=== PATIENT | female | born 1965 | race Caucasian/White ===

== ENCOUNTER 2018-04-24 02:41 | Inpatient (IN) | payer OTHER ==
[~2018-04-24] VITALS: Ht 154.9 cm; Wt 67.3 kg
[2018-04-24] MEDS ORDERED: ONDANSETRON ODT 4 MG ONE (03:12)
[2018-04-24] MEDS ORDERED: MORPHINE SULFATE 4 MG/ML, 1ML ONE ×4 (03:12→05:32)
[2018-04-24] MEDS ORDERED: KETOROLAC 30 MG/1 ML ONE (03:12)
[2018-04-24 03:16] LABS: BASOPHILS # (AUTO) 0.01 x10^3/uL (0-0.1); BASOPHILS % (AUTO) 0 % (0-1); EOSINOPHILS # (AUTO) 0.07 x10^3/uL (0-0.4); EOSINOPHILS % (AUTO) 1 % (1-7); LYMPHOCYTES # (AUTO) 1.66 x10^3/uL (1-3.4); LYMPHOCYTES % (AUTO) 15 % (22-44); MD NO; MEAN CORPUSCULAR HEMOGLOBIN 31.9 pg (27.0-34.8); MEAN CORPUSCULAR HGB CONC 33.8 g/dL (32.4-35.8); MEAN CORPUSCULAR VOLUME 94.2 fL (80-100); MEAN PLATELET VOLUME 8.3 fL (7.4-10.4); MONOCYTES # (AUTO) 0.03 x10^3/uL (0.2-0.8); MONOCYTES % (AUTO) 0 % (2-9); NEUTROPHILS # (AUTO) 9.42 x10^3/uL (1.8-6.8); NEUTROPHILS % (AUTO) 84 % (42-75); PLATELET COUNT 250 x10^3/uL (130-400); RED CELL DISTRIBUTION WIDTH 13.1 % (9.6-15.2)
[2018-04-24 03:16] LABS: MICROSCOPIC AUTO
[2018-04-24] MEDS: MORPHINE SULFATE 4 MG/ML, 1ML IVPush PRN ×4 (03:18→05:36)
[2018-04-24 03:21] LABS: CULTURE INDICATED? YES
[2018-04-24 03:27] LABS: ALANINE AMINOTRANSFERASE 44 U/L (12-78); ALBUMIN 4.3 g/dL (3.4-5.0); ANION GAP 12 mmol/L (5-15); CALCIUM 8.9 mg/dL (8.5-10.1); CHLORIDE 108 mmol/L (98-107); CREATININE 0.93 mg/dL (0.55-1.02)
[2018-04-24 03:30] LABS: ALKALINE PHOSPHATASE 109 U/L (45-117); BILIRUBIN,TOTAL 0.4 mg/dL (0.2-1.0); TOTAL PROTEIN 7.9 g/dL (6.4-8.2)
[2018-04-24] MEDS ORDERED: ONDANSETRON ODT 4 MG PO ONE (03:30)
[2018-04-24] MEDS ORDERED: SODIUM CHLORIDE FLUSH 10ML SYR IVF ONE (03:30)
[2018-04-24] MEDS ORDERED: KETOROLAC 30 MG/1 ML IVPush ONE (03:30)
[2018-04-24] MEDS ORDERED: PROCHLORPERAZINE 5 MG/ML, 2ML ONE (04:16)
[2018-04-24] MEDS ORDERED: PROCHLORPERAZINE 5 MG/ML, 2ML IVPush ONE (04:30)
[2018-04-24] MEDS ORDERED: CEFTRIAXONE PMX 1GM/50ML 50 ML IV ONE (05:00)
[2018-04-24 05:09] LABS: MICROSCOPIC AUTO
[2018-04-24 05:12] LABS: CULTURE INDICATED? YES
[2018-04-24] MEDS ORDERED: CEFTRIAXONE PMX 1GM/50ML 50 ML ONE (05:15)
[2018-04-24 06:15] VITALS: BP 119/77
[2018-04-24] MEDS ORDERED: CEFTRIAXONE PMX 1GM/50ML 50 ML IV SCH (08:00)
[2018-04-24] MEDS ORDERED: BISACODYL 10 MG SUPP PR PRN (08:00)
[2018-04-24] MEDS ORDERED: ACETAMINOPHEN 325 MG TABLET PO PRN (08:00)
[2018-04-24] MEDS: ONDANSETRON 2MG/ML, 2ML IVPush PRN ×2 (10:23→21:56)
[2018-04-24] MEDS: SENNA/DOCUSATE TABLET PO SCH (10:24)
[2018-04-24] MEDS: SODIUM CHLORIDE 0.9% 1,000 ML IV SCH ×2 (10:24→17:47)
[2018-04-24] MEDS: morphine SULFATE 10 MG/ML, 1ML IVPush PRN ×3 (11:25→23:16)
[2018-04-24 13:20] VITALS: BP 102/68
[2018-04-24] MEDS: PROCHLORPERAZINE 5 MG/ML, 2ML IM PRN (16:35)
[2018-04-24 19:28] VITALS: BP 99/65
[2018-04-24] MEDS ORDERED: PROPOFOL 10 MG/ML, 20ML ONE (19:51)
[2018-04-24] MEDS ORDERED: CEFAZOLIN 1,000 MG ONE (19:51)
[2018-04-24] MEDS ORDERED: SUCCINYLCHOLINE 20 MG/ML, 10ML ONE (19:51)
[2018-04-24] MEDS ORDERED: LIDOCAINE 2% 100MG/5ML SYRINGE ONE (19:51)
[2018-04-24] MEDS ORDERED: LACTATED RINGERS 1,000 ML ONE (19:51)
[2018-04-24] MEDS ORDERED: DEXAMETHASONE 4 MG/ML, 1ML ONE (19:51)
[2018-04-24] MEDS ORDERED: FENTANYL PF 100 MCG/2ML ONE (19:55)
[2018-04-24] MEDS ORDERED: OXYcodone 5 MG/5 ML ORAL.SOL UDC PO PRN (20:30)
[2018-04-24] MEDS ORDERED: FENTANYL PF 100 MCG/2ML IV PRN (20:30)
[2018-04-24] MEDS ORDERED: HALOPERIDOL 5 MG/ML IV PRN (20:30)
[2018-04-24] MEDS ORDERED: HYDROmorphone 1 MG/ML, 1ML IV PRN (20:30)
[2018-04-24] MEDS ORDERED: OMNIPAQUE 350 MG/ML, 50 ML BOTTLE ONE (21:50)
[2018-04-25 01:04] VITALS: BP 113/72
[2018-04-25] MEDS: SODIUM CHLORIDE 0.9% 1,000 ML IV SCH ×4 (03:25→23:00)
[2018-04-25 04:43] LABS: ALANINE AMINOTRANSFERASE 507 U/L (12-78); ANION GAP 8 mmol/L (5-15); CALCIUM 7.8 mg/dL (8.5-10.1); CHLORIDE 111 mmol/L (98-107)
[2018-04-25 04:45] LABS: ALKALINE PHOSPHATASE 122 U/L (45-117); BILIRUBIN,TOTAL 0.6 mg/dL (0.2-1.0); CREATININE 0.66 mg/dL (0.55-1.02); TOTAL PROTEIN 6.3 g/dL (6.4-8.2)
[2018-04-25 04:47] LABS: MEAN CORPUSCULAR HEMOGLOBIN 31.3 pg (27.0-34.8); MEAN CORPUSCULAR HGB CONC 33.2 g/dL (32.4-35.8); MEAN CORPUSCULAR VOLUME 94.2 fL (80-100); MEAN PLATELET VOLUME 8.4 fL (7.4-10.4); PLATELET COUNT 192 x10^3/uL (130-400); RED CELL DISTRIBUTION WIDTH 13.9 % (9.6-15.2)
[2018-04-25 05:46] LABS: MD YES
[2018-04-25 05:47] LABS: BAND#(MANUAL) 3.93 x10^3/uL; BANDS%(MANUAL) 13 % (0-7); LYMPH#(MANUAL) 1.81 x10^3/uL (1-3.4); LYMPHS% (MANUAL) 6 % (22-44); MONOS#(MANUAL) 0.91 x10^3/uL (0.3-2.7); MONOS% (MANUAL) 3 % (2-9); SEG#(MANUAL) 23.56 x10^3/uL (1.8-6.8); SEGS% (MANUAL) 78 % (42-75)
[2018-04-25 05:48] LABS: <PLATELET ESTIMATE> ADEQUATE; <PLT MORPHOLOGY> NORMAL PLT MORPH; <RBC MORPHOLOGY> NORMAL
[2018-04-25] MEDS: morphine SULFATE 10 MG/ML, 1ML IVPush PRN ×2 (07:33→20:12)
[2018-04-25] MEDS: SENNA/DOCUSATE TABLET PO SCH (07:34)
[2018-04-25] MEDS: ONDANSETRON 2MG/ML, 2ML IVPush PRN ×3 (07:34→23:10)
[2018-04-25 08:09] VITALS: BP 108/66
[2018-04-25] MEDS: CEFTRIAXONE 1,000 MG in SODIUM CHLORIDE 0.9% 50 ML IV SCH (09:51)
[2018-04-25] MEDS: PROCHLORPERAZINE 5 MG/ML, 2ML IM PRN ×2 (10:57→20:12)
[2018-04-25 11:10] LABS: INTERNATIONAL NORMALIZED RATIO 1.47 (0.93-1.1); PROTHROMBIN TIME 15.2 Seconds (9.6-11.5)
[2018-04-25 13:56] VITALS: BP 102/64
[2018-04-25 14:35] LABS: ALANINE AMINOTRANSFERASE 395 U/L (12-78); ALBUMIN 2.9 g/dL (3.4-5.0); ANION GAP 6 mmol/L (5-15); CALCIUM 7.8 mg/dL (8.5-10.1); CHLORIDE 112 mmol/L (98-107); CREATININE 0.62 mg/dL (0.55-1.02)
[2018-04-25 14:37] LABS: ALKALINE PHOSPHATASE 114 U/L (45-117); BILIRUBIN,TOTAL 0.4 mg/dL (0.2-1.0); TOTAL PROTEIN 6.1 g/dL (6.4-8.2)
[2018-04-25 19:24] LABS: MEAN CORPUSCULAR HEMOGLOBIN 31.9 pg (27.0-34.8); MEAN CORPUSCULAR HGB CONC 33.6 g/dL (32.4-35.8); MEAN CORPUSCULAR VOLUME 94.8 fL (80-100); MEAN PLATELET VOLUME 8.6 fL (7.4-10.4); PLATELET COUNT 184 x10^3/uL (130-400); RED BLOOD COUNT 3.43 x10^6/uL (3.82-5.3); RED CELL DISTRIBUTION WIDTH 13.9 % (9.6-15.2)
[2018-04-25 19:44] LABS: MD YES
[2018-04-25 19:46] LABS: BAND#(MANUAL) 2.68 x10^3/uL; BANDS%(MANUAL) 11 % (0-7); LYMPH#(MANUAL) 0.98 x10^3/uL (1-3.4); LYMPHS% (MANUAL) 4 % (22-44); MONOS#(MANUAL) 0.24 x10^3/uL (0.3-2.7); MONOS% (MANUAL) 1 % (2-9); SEGS% (MANUAL) 84 % (42-75)
[2018-04-25 19:47] LABS: <PLATELET ESTIMATE> ADEQUATE; <PLT MORPHOLOGY> NORMAL PLT MORPH; <RBC MORPHOLOGY> NORMAL
[2018-04-25 19:49] VITALS: BP 121/73
[2018-04-26 00:37] VITALS: BP 130/80
[2018-04-26 04:30] LABS: MEAN CORPUSCULAR HEMOGLOBIN 31.1 pg (27.0-34.8); MEAN CORPUSCULAR HGB CONC 33.2 g/dL (32.4-35.8); MEAN CORPUSCULAR VOLUME 93.8 fL (80-100); MEAN PLATELET VOLUME 8.7 fL (7.4-10.4); PLATELET COUNT 187 x10^3/uL (130-400); RED BLOOD COUNT 3.52 x10^6/uL (3.82-5.3); RED CELL DISTRIBUTION WIDTH 13.6 % (9.6-15.2)
[2018-04-26 04:39] LABS: ALBUMIN 2.7 g/dL (3.4-5.0); ANION GAP 7 mmol/L (5-15); CALCIUM 7.6 mg/dL (8.5-10.1); CHLORIDE 112 mmol/L (98-107)
[2018-04-26 04:43] LABS: ALANINE AMINOTRANSFERASE 331 U/L (12-78); ALKALINE PHOSPHATASE 113 U/L (45-117); BILIRUBIN,TOTAL 0.6 mg/dL (0.2-1.0); CREATININE 0.67 mg/dL (0.55-1.02); TOTAL PROTEIN 5.9 g/dL (6.4-8.2)
[2018-04-26 05:14] LABS: MD YES
[2018-04-26 05:18] LABS: <RBC MORPHOLOGY> NORMAL; BAND#(MANUAL) 1.56 x10^3/uL; BANDS%(MANUAL) 8 % (0-7); LYMPH#(MANUAL) 4.68 x10^3/uL (1-3.4); LYMPHS% (MANUAL) 24 % (22-44); METAMYELOCYTES% (MANUAL) 1 % (0-1); MONOS#(MANUAL) 0.39 x10^3/uL (0.3-2.7); MONOS% (MANUAL) 2 % (2-9); SEG#(MANUAL) 12.68 x10^3/uL (1.8-6.8); SEGS% (MANUAL) 65 % (42-75)
[2018-04-26 05:19] LABS: <PLATELET ESTIMATE> ADEQUATE; <PLT MORPHOLOGY> NORMAL PLT MORPH
[2018-04-26] MEDS: morphine SULFATE 10 MG/ML, 1ML IVPush PRN ×6 (05:32→23:45)
[2018-04-26] MEDS: SODIUM CHLORIDE 0.9% 1,000 ML IV SCH ×3 (05:35→19:59)
[2018-04-26 07:05] VITALS: BP 136/82
[2018-04-26] MEDS: SENNA/DOCUSATE TABLET PO SCH (08:50)
[2018-04-26] MEDS: CEFTRIAXONE 1,000 MG in SODIUM CHLORIDE 0.9% 50 ML IV SCH (09:34)
[2018-04-26] MEDS: ONDANSETRON 2MG/ML, 2ML IVPush PRN ×3 (09:34→23:45)
[2018-04-26] MEDS: PROCHLORPERAZINE 5 MG/ML, 2ML IM PRN ×2 (12:11→19:52)
[2018-04-26 14:48] VITALS: BP 122/68
[2018-04-26 19:21] VITALS: BP 154/82
[2018-04-27 01:24] VITALS: BP 143/78
[2018-04-27] MEDS: SODIUM CHLORIDE 0.9% 1,000 ML IV SCH ×4 (02:21→22:31)
[2018-04-27 04:22] LABS: MEAN CORPUSCULAR HEMOGLOBIN 31.8 pg (27.0-34.8); MEAN CORPUSCULAR HGB CONC 33.8 g/dL (32.4-35.8); MEAN CORPUSCULAR VOLUME 93.9 fL (80-100); MEAN PLATELET VOLUME 8.3 fL (7.4-10.4); PLATELET COUNT 198 x10^3/uL (130-400); RED BLOOD COUNT 3.55 x10^6/uL (3.82-5.3); RED CELL DISTRIBUTION WIDTH 13.4 % (9.6-15.2)
[2018-04-27 04:34] LABS: ALBUMIN 2.8 g/dL (3.4-5.0); ANION GAP 7 mmol/L (5-15); CALCIUM 7.6 mg/dL (8.5-10.1); CHLORIDE 108 mmol/L (98-107)
[2018-04-27 04:38] LABS: ALANINE AMINOTRANSFERASE 392 U/L (12-78); ALKALINE PHOSPHATASE 170 U/L (45-117); CREATININE 0.51 mg/dL (0.55-1.02); TOTAL PROTEIN 6.1 g/dL (6.4-8.2)
[2018-04-27] MEDS: morphine SULFATE 10 MG/ML, 1ML IVPush PRN ×4 (04:42→21:54)
[2018-04-27 04:45] LABS: MD YES
[2018-04-27 04:47] LABS: <PLATELET ESTIMATE> ADEQUATE; <PLT MORPHOLOGY> NORMAL PLT MORPH; <RBC MORPHOLOGY> NORMAL; BAND#(MANUAL) 0.35 x10^3/uL; BANDS%(MANUAL) 3 % (0-7); LYMPH#(MANUAL) 2.57 x10^3/uL (1-3.4); LYMPHS% (MANUAL) 22 % (22-44); MONOS#(MANUAL) 0.23 x10^3/uL (0.3-2.7); MONOS% (MANUAL) 2 % (2-9); SEG#(MANUAL) 8.54 x10^3/uL (1.8-6.8); SEGS% (MANUAL) 73 % (42-75)
[2018-04-27] MEDS: PROCHLORPERAZINE 5 MG/ML, 2ML IM PRN ×3 (04:53→18:31)
[2018-04-27 06:40] VITALS: BP 131/78
[2018-04-27] MEDS: CEFTRIAXONE 1,000 MG in SODIUM CHLORIDE 0.9% 50 ML IV SCH (08:45)
[2018-04-27] MEDS: ONDANSETRON 2MG/ML, 2ML IVPush PRN ×3 (08:46→21:54)
[2018-04-27] MEDS: SENNA/DOCUSATE TABLET PO SCH (08:46)
[2018-04-27 12:35] VITALS: BP 138/83
[2018-04-27 19:12] VITALS: BP 151/88
[2018-04-28 01:26] VITALS: BP 144/82
[2018-04-28] MEDS: PROCHLORPERAZINE 5 MG/ML, 2ML IM PRN (01:49)
[2018-04-28] MEDS ORDERED: MORPHINE SULFATE 4 MG/ML, 1ML ONE (04:13)
[2018-04-28] MEDS: morphine SULFATE 10 MG/ML, 1ML IVPush PRN ×2 (04:16→10:01)
[2018-04-28 04:50] LABS: ALANINE AMINOTRANSFERASE 396 U/L (12-78); ALBUMIN 2.9 g/dL (3.4-5.0); ANION GAP 10 mmol/L (5-15); CALCIUM 7.9 mg/dL (8.5-10.1); CHLORIDE 103 mmol/L (98-107); CREATININE 0.44 mg/dL (0.55-1.02)
[2018-04-28] MEDS: SODIUM CHLORIDE 0.9% 1,000 ML IV SCH (04:51)
[2018-04-28 04:52] LABS: ALKALINE PHOSPHATASE 220 U/L (45-117); BILIRUBIN,TOTAL 0.9 mg/dL (0.2-1.0); TOTAL PROTEIN 6.5 g/dL (6.4-8.2)
[2018-04-28 07:23] VITALS: BP 153/80
[2018-04-28] MEDS ORDERED: MAGNESIUM SULFATE PMX 2GM/50ML 50 ML IV ONE (07:30)
[2018-04-28] MEDS ORDERED: POTASSIUM CHLORIDE 20 MEQ PACKET PO SCH (08:00)
[2018-04-28] MEDS: SENNA/DOCUSATE TABLET PO SCH (09:00)
[2018-04-28 09:41] LABS: MEAN CORPUSCULAR HEMOGLOBIN 30.8 pg (27.0-34.8); MEAN CORPUSCULAR HGB CONC 33.3 g/dL (32.4-35.8); MEAN CORPUSCULAR VOLUME 92.5 fL (80-100); MEAN PLATELET VOLUME 8.5 fL (7.4-10.4); PLATELET COUNT 248 x10^3/uL (130-400); RED BLOOD COUNT 3.83 x10^6/uL (3.82-5.3); RED CELL DISTRIBUTION WIDTH 13.1 % (9.6-15.2)
[2018-04-28 09:54] LABS: MD YES
[2018-04-28 09:57] LABS: BANDS%(MANUAL) 1 % (0-7); EOS% (MANUAL) 2 % (1-7); LYMPH#(MANUAL) 2.48 x10^3/uL (1-3.4); LYMPHS% (MANUAL) 25 % (22-44); METAMYELOCYTES% (MANUAL) 2 % (0-1); MONOS#(MANUAL) 0.89 x10^3/uL (0.3-2.7); MONOS% (MANUAL) 9 % (2-9); NRBC % (MANUAL) 1 % (0-1); SEG#(MANUAL) 6.04 x10^3/uL (1.8-6.8); SEGS% (MANUAL) 61 % (42-75)
[2018-04-28 09:58] LABS: <PLATELET ESTIMATE> ADEQUATE; <PLT MORPHOLOGY> NORMAL PLT MORPH; <RBC MORPHOLOGY> NORMAL
[2018-04-28] MEDS: CEFTRIAXONE 1,000 MG in SODIUM CHLORIDE 0.9% 50 ML IV SCH (10:01)
[2018-04-28] MEDS: ONDANSETRON 2MG/ML, 2ML IVPush PRN ×2 (10:01→17:01)
[2018-04-28] MEDS: NS + 40MEQ KCL 1,000 ML IV SCH ×2 (10:02→22:14)
[2018-04-28 12:39] VITALS: BP 150/83
[2018-04-28 18:33] VITALS: BP 148/86
[2018-04-28] MEDS ORDERED: TEMAZEPAM 15 MG CAPSULE PO PRN (22:00)
[2018-04-29 01:43] VITALS: BP 145/84
[2018-04-29 04:37] LABS: BASOPHILS # (AUTO) 0.03 x10^3/uL (0-0.1); BASOPHILS % (AUTO) 0 % (0-1); EOSINOPHILS # (AUTO) 0.26 x10^3/uL (0-0.4); EOSINOPHILS % (AUTO) 2 % (1-7); LYMPHOCYTES # (AUTO) 2.69 x10^3/uL (1-3.4); LYMPHOCYTES % (AUTO) 24 % (22-44); MD NO; MEAN CORPUSCULAR HEMOGLOBIN 31.2 pg (27.0-34.8); MEAN CORPUSCULAR HGB CONC 33.6 g/dL (32.4-35.8); MEAN PLATELET VOLUME 8.1 fL (7.4-10.4); MONOCYTES # (AUTO) 1.07 x10^3/uL (0.2-0.8); MONOCYTES % (AUTO) 10 % (2-9); NEUTROPHILS # (AUTO) 7.02 x10^3/uL (1.8-6.8); NEUTROPHILS % (AUTO) 63 % (42-75); PLATELET COUNT 282 x10^3/uL (130-400); RED BLOOD COUNT 4.21 x10^6/uL (3.82-5.3); RED CELL DISTRIBUTION WIDTH 13.3 % (9.6-15.2)
[2018-04-29 04:44] LABS: ANION GAP 7 mmol/L (5-15); CALCIUM 8.5 mg/dL (8.5-10.1); CHLORIDE 104 mmol/L (98-107)
[2018-04-29 06:58] VITALS: BP 143/87
[2018-04-29] MEDS: SENNA/DOCUSATE TABLET PO SCH (09:00)
[2018-04-29] MEDS: NS + 40MEQ KCL 1,000 ML IV SCH (09:38)
[2018-04-29] MEDS: CEFTRIAXONE 1,000 MG in SODIUM CHLORIDE 0.9% 50 ML IV SCH (09:38)
[2018-04-29] MEDS ORDERED: ONDA4TAB10 PO (09:48)
[2018-04-29] MEDS ORDERED: CIPR500T87 PO (09:48)
== END 2018-04-29 11:05 | disposition home or self-care (01) | DRG 689 ==
LOC: ED 04:19 → EDBD 05:42 → EDIP 05:42 → 3NW 06:06
PROVIDERS: ADMIT Internal Medicine; ATTEND Internal Medicine
PROC: BT1F1ZZ Fluoroscopy of Left Kidney, Ureter and Bladder using Low Osmolar Contrast (ICD-10-PCS; 2018-04-24)
PROC: 0T9B70Z Drainage of Bladder with Drainage Device, Via Natural or Artificial Opening (ICD-10-PCS; 2018-04-24)
PROC: 0T778DZ Dilation of Left Ureter with Intraluminal Device, Via Natural or Artificial Opening Endoscopic (ICD-10-PCS; principal; 2018-04-24 20:00)
DX: N13.6 Pyonephrosis (principal); J96.91 Respiratory failure, unspecified with hypoxia; E83.42 Hypomagnesemia; E87.6 Hypokalemia; I88.0 Nonspecific mesenteric lymphadenitis; Z66 Do not resuscitate; Z80.8 Family history of malignant neoplasm of other organs or systems; Z90.710 Acquired absence of both cervix and uterus
CPT/HCPCS: 36415; 71045; 74176; 74420; 76700; 80048; 80053; 80074; 80307; 81001; 83735; 84100; 84443; 85025; 85610; 87040; 87077; 87086; 87186; 96365; 96372; 96375; 99285; J0690; J0696; J1100; J1885; J2405; J2704; J3010; Q0162; Q9967; C1758; C1769; C2617; J0330; J0780; J2270; J3475; J3480; J7030; J7120

== ENCOUNTER 2018-04-30 21:06 | Emergency (ER) | payer OTHER ==
[~2018-04-30] VITALS: Ht 154.9 cm; Wt 63.1 kg
[~2018-04-30 21:06] MED LIST: CIPR500T87 PO; ONDA4TAB10 PO
[2018-04-30 21:51] LABS: CULTURE INDICATED? YES; MICROSCOPIC AUTO
[2018-04-30] MEDS ORDERED: KETOROLAC 30 MG/1 ML ONE (22:16)
[2018-04-30] MEDS ORDERED: MORPHINE SULFATE 4 MG/ML, 1ML ONE (22:16)
[2018-04-30] MEDS ORDERED: SODIUM CHLORIDE FLUSH 10ML SYR IVF ONE (22:30)
[2018-04-30] MEDS ORDERED: KETOROLAC 30 MG/1 ML IVPush ONE (22:30)
[2018-04-30] MEDS ORDERED: MORPHINE SULFATE 4 MG/ML, 1ML IVPush PRN (22:30)
[2018-04-30 22:42] LABS: BASOPHILS # (AUTO) 0.16 x10^3/uL (0-0.1); BASOPHILS % (AUTO) 2 % (0-1); EOSINOPHILS # (AUTO) 0.19 x10^3/uL (0-0.4); EOSINOPHILS % (AUTO) 2 % (1-7); LYMPHOCYTES # (AUTO) 4.04 x10^3/uL (1-3.4); LYMPHOCYTES % (AUTO) 37 % (22-44); MD NO; MEAN CORPUSCULAR HEMOGLOBIN 31.4 pg (27.0-34.8); MEAN CORPUSCULAR HGB CONC 33.3 g/dL (32.4-35.8); MEAN CORPUSCULAR VOLUME 94.4 fL (80-100); MEAN PLATELET VOLUME 8.2 fL (7.4-10.4); MONOCYTES # (AUTO) 1.16 x10^3/uL (0.2-0.8); MONOCYTES % (AUTO) 11 % (2-9); NEUTROPHILS # (AUTO) 5.33 x10^3/uL (1.8-6.8); NEUTROPHILS % (AUTO) 49 % (42-75); PLATELET COUNT 308 x10^3/uL (130-400); RED BLOOD COUNT 4.64 x10^6/uL (3.82-5.3); RED CELL DISTRIBUTION WIDTH 13.5 % (9.6-15.2)
[2018-04-30 22:53] LABS: ALBUMIN 3.7 g/dL (3.4-5.0); ANION GAP 6 mmol/L (5-15); CALCIUM 8.8 mg/dL (8.5-10.1); CHLORIDE 108 mmol/L (98-107); CREATININE 0.61 mg/dL (0.55-1.02)
[2018-05-01 00:59] VITALS: BP 119/67
== END 2018-05-01 01:01 | disposition home or self-care (01) ==
LOC: ED 21:31
DX: R10.32 Left lower quadrant pain (principal); R30.0 Dysuria
CPT/HCPCS: 36415; 74021; 76770; 80048; 81001; 82040; 85025; 87086; 96374; 96375; 99285; J1885